=== PATIENT | male | born 1990 | race Caucasian/White ===

== ENCOUNTER 2018-02-24 20:30 | Emergency (ER) | payer OTHER ==
[2018-02-24 20:51] VITALS: BP 170/85
--- NOTE | 2018-02-24 21:07 | UC ---
UC General HPI - HPI Summary HPI Summary: pt works outdoors. he found a tick on his R shoulder and could not reach it for removal. states there for a day or less. gets them often and just pulls them off but couldn't reach this one. no fever, rash or joint pain. - History of Current Complaint Chief Complaint: Taisha Stated Complaint: TICK Time Seen by Provider: 02/24/18 21:01 Hx Obtained From: Patient Pain Intensity: 0 Aggravating: nothing Associated Signs & Symptoms: Negative: Fever - Allergy/Home Medications Allergies/Adverse Reactions: Allergies Allergy/AdvReac Type Severity Reaction Status Date / Time No Known Allergies Allergy Verified 02/24/18 20:44 Home Medications: Home Medications NK [No Home Medications Reported] 02/24/18 [History Confirmed 02/24/18] PMH/Surg Hx/FS Hx/Imm Hx Previously Healthy: Yes Cardiovascular History: Hypertension - opted not to tx - Surgical History Surgical History: Yes Surgery Procedure, Year, and Place: T&A - Family History Known Family History: Positive: None - Social History Occupation: Employed Full-time Lives: With Family Alcohol Use: None Substance Use Type: Marijuana Smoking Status (MU): Former Smoker Type: Smokeless Tobacco Amount Used/How Often: 1 CAN EVERY 2-3 DAYS Length of Time of Smoking/Using Tobacco: 11 YRS Review of Systems Constitutional: Negative Skin: Negative Eyes: Negative ENT: Negative Respiratory: Negative Cardiovascular: Negative Gastrointestinal: Negative Genitourinary: Negative Motor: Negative Neurovascular: Negative Musculoskeletal: Negative Neurological: Negative Psychological: Negative Is Patient Immunocompromised?: No All Other Systems Reviewed And Are Negative: Yes Physical Exam Triage Information Reviewed: Yes Appearance: Well-Appearing Vital Signs: Initial Vital Signs Temp 98.7 F 02/24/18 20:45 Pulse 79 02/24/18 20:45 Resp 16 02/24/18 20:45 BP 170/85 02/24/18 20:45 Pulse Ox 100 02/24/18 20:45 Vital Signs Reviewed: Yes Eyes: Positive: Conjunctiva Clear ENT: Positive: Normal ENT inspection Neck: Positive: Supple, Nontender, No Lymphadenopathy Respiratory: Positive: Lungs clear, Normal breath sounds Cardiovascular: Positive: RRR, No Murmur Abdomen Description: Positive: Nontender, No Organomegaly, Soft Bowel Sounds: Positive: Present Musculoskeletal: Positive: ROM Intact Neurological: Positive: Alert Psychological: Positive: Age Appropriate Behavior Skin Exam: Normal, Other - Small tick R side of upper back. Procedures - Procedure Summary Procedure Summary: tick removed with twister. came out whole. area cleaned. Course/Dx - Course Course Of Treatment: pt has hx htn, stopped his medication. encouraged to f/u to resume tx. - Differential Dx - Multi-Symptom Provider Diagnoses: Tick bite Discharge - Sign-Out/Discharge Documenting (check all that apply): Discharge/Admit/Transfer - Discharge Plan Condition: Stable Disposition: HOME Patient Education Materials: Tick Bite (ED) Referrals: LAURENCE Wilkerson [Medical Doctor] - If Needed - Billing Disposition and Condition Condition: STABLE Disposition: HOME
== END 2018-02-24 21:15 | disposition home or self-care (01) ==
LOC: UCCORT 20:30
DX: S40.261A Insect bite (nonvenomous) of right shoulder, initial encounter (principal); W57.XXXA Bitten or stung by nonvenomous insect and other nonvenomous arthropods, initial encounter; Y93.9 Activity, unspecified; Y92.9 Unspecified place or not applicable; F17.220 Nicotine dependence, chewing tobacco, uncomplicated
CPT/HCPCS: 99211; G0463